=== PATIENT | male | born 1960 | race Caucasian/White ===

== ENCOUNTER → 2024-05-27 12:47 | Outpatient (REF) | payer MEDICARE, OTHER, SELFPAY | LOC: PAVMRI 12:47 | PROVIDERS: ATTENDING PHYSICIAN Pain Medicine Interventional Pain Medicine; FAMILY PHYSICIAN Family Medicine | DX: M54.16 Radiculopathy, lumbar region (principal); M54.2 Cervicalgia | CPT/HCPCS: 72141; 72148 ==

== ENCOUNTER → 2024-06-24 07:03 | Outpatient (REF) | payer MEDICARE, OTHER, SELFPAY | LOC: RCS 07:03 | PROVIDERS: ATTENDING PHYSICIAN Internal Medicine | DX: R00.2 Palpitations (principal) | CPT/HCPCS: 93306 ==

== ENCOUNTER → 2025-03-24 09:30 | Outpatient (REF) | payer MEDICARE, OTHER, SELFPAY | LOC: RCS 09:30 | PROVIDERS: ATTENDING PHYSICIAN Internal Medicine Cardiovascular Disease; FAMILY PHYSICIAN Internal Medicine | DX: E78.00 Pure hypercholesterolemia, unspecified (principal); I10 Essential (primary) hypertension; R00.2 Palpitations; R94.31 Abnormal electrocardiogram [ECG] [EKG] | CPT/HCPCS: 93017 ==

== ENCOUNTER → 2025-03-27 12:02 | Outpatient (REF) | payer MEDICARE, OTHER, SELFPAY | LOC: RAD 12:02 | PROVIDERS: ATTENDING PHYSICIAN Surgery; FAMILY PHYSICIAN Internal Medicine | DX: K43.2 Incisional hernia without obstruction or gangrene (principal) | CPT/HCPCS: 74177; Q9967 ==

== ENCOUNTER → 2025-03-31 12:11 | Outpatient (REF) | payer MEDICARE, OTHER, SELFPAY ==
[2025-03-31 12:57] LABS: Hematocrit 43.9 % (39.0-52.0); Hemoglobin 14.9 g/dL (13.0-18.0); Mean Corp Hgb Conc. 33.9 g/dL (33.0-37.0); Mean Corpuscular Volume 87.8 fL (80.0-94.0); Nucleated Red Blood Cells % 0 % (-); Platelet Count 212 10^3/uL (130-400); Red Cell Dist. Width 13.2 % (11.5-14.5)
[2025-03-31 13:21] LABS: ALT (SGPT) 39 U/L (0-50); AST (SGOT) 39 U/L (17-59); Albumin 4.6 g/dl (3.5-5.0); Alkaline Phosphatase 56 U/L (38-126); Blood Urea Nitrogen 12 mg/dl (9-20); Calcium 9.4 mg/dl (8.4-10.2); Carbon Dioxide 25 mmol/L (22-30); Chloride 106 mmol/L (98-107); Glucose 170 mg/dl (70-99); Potassium 3.8 mmol/L (3.5-5.1); Sodium 139 mmol/L (135-145); Total Protein 8.1 g/dl (6.3-8.2); eGFR > 60.00
== END ==
LOC: SDSPAT 12:11
PROVIDERS: ATTENDING PHYSICIAN Internal Medicine Cardiovascular Disease; FAMILY PHYSICIAN Internal Medicine; OTHER PHYSICIAN Internal Medicine Cardiovascular Disease
DX: R94.39 Abnormal result of other cardiovascular function study (principal)
CPT/HCPCS: 36415; 80053; 85025; 93005

== ENCOUNTER 2025-04-03 06:00 | Day surgery (SDC) | payer MEDICARE, OTHER, SELFPAY ==
[2025-03-31 12:31] VITALS: BMI 34.0
[2025-04-03] VITALS (21 sets, daily range): BP systolic 141–150; BP diastolic 79–90; BMI 33.8
[2025-04-03 08:35] LABS: ACT-LR - POC 398 Seconds (116-155)
--- NOTE | 2025-04-03 09:05 | W.DS.TRANS ---
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
-
Discharge Instructions:
Discharge Diagnosis/Procedures Abnormal stress test, cardiac catheterization/
coronary angiography, iFR interrogation.
Diet Low Fat,Low Cholesterol
Activity Other activity
Driving Restrictions No driving for 24 hours
Bathing Restrictions None
Instructions:
Stand-Alone Forms: DC Instructions- Cath/EP Lab
Changes to Home Medications: Yes
Discharge Medications:
DC Medications w/original date entered in [facility]
hydrocodone 10 mg-acetaminophen 325 mg tablet 1 ea PO Q8HPRN PRN pain 03/16/15
oxycodone-acetaminophen 5 mg-325 mg tablet 1 tab PO Q4HPRN PRN pain #20 tabs 03/16/15
zolpidem 5 mg tablet 5 mg PO HSPRN PRN insomnia 03/16/15
aspirin 81 mg tablet 81 mg PO DAILY 03/28/25
rosuvastatin 20 mg tablet 20 mg PO HS 03/28/25
Medical Cannabis 1 unit PO DAILY PRN pain 04/03/25
amlodipine 10 mg tablet 10 mg PO DAILY #90 tabs 04/03/25
escitalopram oxalate 20 mg tablet 20 mg PO DAILY 04/03/25
omeprazole 40 mg capsule,delayed release 40 mg PO DAILY 04/03/25
Home Medication Changes
Amlodipine increased to 10 mg daily.
Pending Results: No
--- NOTE | 2025-04-03 09:17 | ITS.CL.CATH ---
Videotape Operator - Catheterization
Cardiac Catheterization
Procedure Report:
CARDIAC CATHETERIZATION REPORT
Date of Procedure: 04/03/2025
Referring: Iwona Gill M.D.
INDICATION: Chest discomfort, abnormal stress test, intolerant of long-acting nitrates.
PROCEDURE:
1. Left heart catheterization
2. Coronary angiography.
3. Successful IFR of the proximal LAD.
4. Successful IFR of the mid D1.
5. Successful IFR of OM1.
6. Successful IFR of proximal RCA.
A total of 57 minutes of procedural/moderate sedation was utilized. An independent spanish medical interpreter was present to assist with and help manage the patient's level of consciousness and physiologic status.
ACCESS:
1. 6 Czech right radial artery using modified Seldinger technique delete the.
CATHETERS:
1. 5 Czech JR4.
2. 5 Czech JL 3.5.
3. 6 Czech EBU 3.5 guiding catheter.
4. 6 Czech JR4 guiding catheter.
HEMODYNAMIC DATA
Weight (kg): 109.8
AO (s/d/x, mmHg): 131/86/107
LV (s/x mmHg): 131/14
LEFT VENTRICULOGRAPHY: Not performed.
CORONARY ANGIOGRAPHY
Dominance: Right.
Left Main: Large size, bifurcating vessel. There is no coronary artery disease.
LAD: Normal size vessel giving rise to 1 significant diagonal. There is a 60% lesion in the proximal LAD, difficult to visualize given the overlap with the circumflex and first diagonal. There is a 50% lesion in the body of D1.
Ramus: Congenitally absent.
Circumflex: Normal sized, nondominant vessel giving rise to 1 large obtuse marginal which supplies the majority of the inferolateral wall. There is a 50-60% lesion in the proximal margin of OM1.
RCA: Normal size, dominant vessel. There is a 40-50% lesion in the proximal margin of the RCA.
INTERVENTION(S)
1. Successful IFR of the 60% proximal LAD lesion, demonstrating nonocclusive disease (iFR = 0.93).
2. Successful IFR of the 50% mid D1 lesion, demonstrating nonocclusive disease (iFR = 0.94).
3. Successful IFR of the 50-60% proximal OM1 lesion, demonstrating nonocclusive disease (iFR = 1.0).
4. Successful IFR of the 40-50% proximal RCA lesion, demonstrating nonocclusive disease (iFR = 0.95).
Narrative:
The decision was made to perform physiologic testing. The diagnostic catheter was removed over a wire and exchanged for a(n) 6 Czech EBU 3.5 guiding catheter. The guiding catheter was advanced into the ascending aorta and seated in the left main
coronary artery. Additional heparin was given to obtain an ACT greater than 250 seconds. An iFR wire was zeroed outside of the body, then inserted into the guiding sheath. The wire was advanced and the transducer was normalized just outside of the
guiding catheter tip. The wire was advanced into the mid LAD with some difficulty given the overlap of the proximal LAD and diagonal. Three iFR measurements were taken. The lesion was determined to be nonocclusive (0.93), confirmed on pullback.
Given the nature of the patient's symptoms, we decided to proceed with IFR of additional vessels. The wire was confirmed to remain normalized and readvanced into the first diagonal. iFR was performed on the 50% mid D1 lesion, also demonstrating
that it was nonocclusive (0.94).
We then turned our attention to the proximal OM1. The IFR wire was renormalized at the ostium of the guiding catheter and redirected into the first obtuse marginal. iFR demonstrated nonocclusive disease (1.0).
At this point, we elected to continue physiologic evaluation of the right coronary artery. The 6 Czech EBU 3.5 guiding catheter was removed over a wire and exchanged for a(n) 6 Czech JR4 guiding catheter. The guiding catheter was advanced into
the ascending aorta and seated in the right coronary artery. Additional heparin was given to obtain an ACT greater than 250 seconds. An iFR wire was zeroed outside of the body, then inserted into the guiding sheath. The wire was advanced and the
transducer was normalized just outside of the guiding catheter tip. The wire was advanced into the mid RCA. Three iFR measurements were taken. The proximal RCA lesion was determined to be not (0.95). The catheter was disengaged from the right
coronary artery. The wire was removed and the catheter was removed over a standard J-wire.
Closure Device: Vascular band
Radiation (mGy): 962.63
DAP (cm2.Gy): 82.3616
Fluoroscopy time (minutes): 14.0
CONCLUSIONS
1. Right dominant circulation with nonocclusive, moderate coronary artery disease including a 60% proximal LAD lesion (iFR = 0.93), a 50% mid D1 lesion (iFR = 0.94), a 50-60% proximal OM1 lesion (iFR = 1.0) and a 40-50% proximal RCA lesion (0.95).
2. Mildly elevated filling pressures (LVEDP = 14 mmHg at 109.8 kg).
3. Possible endothelial dysfunction, though not definitive.
RECOMMENDATIONS:
1. Expectant management after cardiac catheterization via right radial approach.
2. Limited weight bearing on the right for one week.
3. Increase amlodipine to 10 mg daily for possible endothelial dysfunction as well as for more optimal blood pressure management.
4. Avoid long-acting nitrates given refractory headaches.
5. Continue aggressive primary prevention with high-dose, high potency statin. Goal LDL <55.
6. OMT/GDMT as hemodynamics will tolerate, including primary prevention aspirin.
7. Stable for outpatient follow-up.
Copy to: Iwona Gill M.D., Eloisa Engle M.D.
Adi Kaba DO, FACC, FACP
== END 2025-04-03 13:04 | disposition home or self-care (01) ==
LOC: CATH 06:00
PROVIDERS: ATTENDING PHYSICIAN Internal Medicine Cardiovascular Disease; FAMILY PHYSICIAN Internal Medicine; REFERRING PHYSICIAN Internal Medicine Cardiovascular Disease
DX: I25.10 Atherosclerotic heart disease of native coronary artery without angina pectoris (principal); I47.10 Supraventricular tachycardia, unspecified; I10 Essential (primary) hypertension; E66.9 Obesity, unspecified; Z68.34 Body mass index [BMI] 34.0-34.9, adult; R91.1 Solitary pulmonary nodule; K76.0 Fatty (change of) liver, not elsewhere classified; M48.00 Spinal stenosis, site unspecified; G47.00 Insomnia, unspecified; Z79.82 Long term (current) use of aspirin; Z79.899 Other long term (current) drug therapy
CPT/HCPCS: 93799 ×3; 99152; 99153; 85347; 93458; 93656; C1769; C1887; C1894; Q9967

== ENCOUNTER 2025-06-28 06:40 | Day surgery (SDC) | payer MEDICARE, OTHER, SELFPAY ==
[2025-06-28] VITALS (8 sets, daily range): BP systolic 92–140; BP diastolic 43–82; BMI 33.5
[2025-06-28] MEDS: TYLENOL 1000 MG PO (11:16)
[2025-06-28] MEDS: NORMOSOL-R/PLASMALYTE-A 1000 IV (11:17)
[2025-06-28] MEDS: DILAUDID 0.5 MG IV ×3 (13:57→14:30)
[2025-06-28] MEDS: ROXICODONE 5 MG PO (15:38)
== END 2025-06-28 16:39 | disposition home or self-care (01) ==
LOC: SDS 06:40
PROVIDERS: ATTENDING PHYSICIAN Surgery
DX: K43.2 Incisional hernia without obstruction or gangrene (principal); L90.5 Scar conditions and fibrosis of skin
CPT/HCPCS: 49591

== ENCOUNTER → 2025-08-21 10:19 | Outpatient (REF) | payer MEDICARE, OTHER, SELFPAY | LOC: RAD 10:19 | PROVIDERS: ATTENDING PHYSICIAN Internal Medicine | DX: R91.1 Solitary pulmonary nodule (principal) | CPT/HCPCS: 71260; Q9967 ==